=== PATIENT | female | born 1930 | race Caucasian/White ===

== ENCOUNTER 2017-04-05 09:00 | Emergency (ER) | payer OTHER, MEDICARE ==
--- NOTE | 2017-04-05 09:21 | ED.PDOC ---
History of Present Illness - General Chief Complaint: Respiratory Problem Stated Complaint: possible aspiration Time Seen by Provider: 04/05/17 09:17 Source: RN notes reviewed, Vital Signs reviewed, EMS notes reviewed, care home records Exam Limitations: other - Dementia - History of Present Illness Initial Comments: Patient sent from care home for possible aspiration. She started choking during breakfast. They attempted suctioning her both orally and nasally. The nasal attempt gave her a nose bleed which has resolved. She continued to have gurgling sounds and her O2 saturation dropped to 92% on 2L NC. EMS was called and she was transferred here for evaluation. 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, suctioning, sitting upright Worsening Factors: nothing Associated Symptoms: wheezing Allergies/Adverse Reactions: Allergies Sulfa Drugs Allergy (Unverified 12/04/13 21:54) Home Medications: Ambulatory Orders Carvedilol 6.25 mg PO BID 12/05/13 Docusate Sodium [Colace] 100 mg PO BEDTIME 12/05/13 Enalapril Maleate 10 mg PO AM 12/05/13 Folic Acid 400 mcg PO AM 12/05/13 LORazepam [Ativan] 0.5 mg PO BEDTIME 12/05/13 Temazepam 30 mg PO HS 12/05/13 Polyethylene Glycol 3350 [Miralax] 1 unt PO QD #0 pckt 12/06/13 Acetamin W/Cod #3 Tab [Tylenol w/CODEINE #3] 1 ea PO Q6HR PRN 04/05/17 Acetaminophen [Tylenol] 650 mg PO Q6HR PRN 04/05/17 Albuterol Sulfate Nebs [Proventil Nebs] 2.5 mg INH Q4HR PRN 04/05/17 Diazepam 10 mg PO BEDTIME 04/05/17 LORazepam [Ativan] 0.5 mg PO Q4HR PRN 04/05/17 Quetiapine Fumarate [Seroquel] 25 mg PO BID 04/05/17 Review of Systems - Review of Systems Unable to Obtain Due To: dementia Past Medical History (General) - Patient Medical History Hx Cardiac Disorders: No Hx Congestive Heart Failure: No Hx Diabetes: No Hx MRSA: No - Social History Hx Alcohol Use: No Hx Substance Use: No Hx Physical Abuse: No Hx Emotional Abuse: No Family Medical History - Family History Daughter Hx Family Cancer: Yes Physical Exam - Physical Exam General Appearance: Alert, Comfortable, No apparent distress, Well Developed, Well Groomed, Well Hydrated, Well Nourished ENT Exam: normal ENT inspection, hearing grossly normal Neck: non-tender, full range of motion Respiratory: lungs clear, no respiratory distress, no accessory muscle use, decreased breath sounds - shallow breaths, can't follow directions to breath deeply, other - O2 Sat 94-96% on room air Cardiovascular/Chest: normal peripheral pulses, regular rate, rhythm, no edema, no gallop, no murmur Extremity: non-tender, normal inspection, no pedal edema Neurologic: alert, disoriented x 3 Skin Exam: normal color, warm/dry Progress - Progress Progress: 04/05/17 10:04 Patient has been resting comfortably. No respiratory distress. Will d/c - EKG/XRAY/CT XRAY: Neck: no foreign body in esophagus per Radiologist - New cardiomegaly, clear lungs per Radiologist Departure - Departure Clinical Impression: Choked on food Time of Disposition: 10:04 Disposition: Discharge to SNF Condition: Good Departure Forms: ED Discharge - Pt. Copy, Patient Portal Self Enrollment Instructions: DI for Choking Episode Diet: resume usual diet Activity: increase activity as tolerated Referrals: Alfonso Hanson MD [Primary Care Provider] - 1-2 Weeks Home Medications: Ambulatory Orders Carvedilol 6.25 mg PO BID 12/05/13 Docusate Sodium [Colace] 100 mg PO BEDTIME 12/05/13 Enalapril Maleate 10 mg PO AM 12/05/13 Folic Acid 400 mcg PO AM 12/05/13 LORazepam [Ativan] 0.5 mg PO BEDTIME 12/05/13 Temazepam 30 mg PO HS 12/05/13 Polyethylene Glycol 3350 [Miralax] 1 unt PO QD #0 pckt 12/06/13 Acetamin W/Cod #3 Tab [Tylenol w/CODEINE #3] 1 ea PO Q6HR PRN 04/05/17 Acetaminophen [Tylenol] 650 mg PO Q6HR PRN 04/05/17 Albuterol Sulfate Nebs [Proventil Nebs] 2.5 mg INH Q4HR PRN 04/05/17 Diazepam 10 mg PO BEDTIME 04/05/17 LORazepam [Ativan] 0.5 mg PO Q4HR PRN 04/05/17 Quetiapine Fumarate [Seroquel] 25 mg PO BID 04/05/17
[2017-04-05 09:24] VITALS: TEMP 97.8
--- NOTE | 2017-04-05 09:41 | RAD ---
EXAM DESCRIPTION: Chest,1 View CLINICAL HISTORY: 86 years Female, possible aspiration IMPRESSION: When compared to the previous study from February 2012 there is been interval development of cardiomegaly. The lungs are clear without evidence of volume overload. Electronically signed by: Scout Forte MD 04/05/2017 9:40 AM CDT
--- NOTE | 2017-04-05 10:00 | RAD ---
EXAM DESCRIPTION: Neck,Soft Tissue CLINICAL HISTORY: 86 years Female, possible aspiration IMPRESSION: Degenerative changes cervical spine. No large bulky osteophytes which would impede swallowing mechanism. The prevertebral soft tissues appear unremarkable. Lung apices are unremarkable. The epiglottis is sharp. Electronically signed by: Scout Forte MD 04/05/2017 9:59 AM CDT
[2017-04-05 11:45] VITALS: BP 121/41; O2SAT 95
== END 2017-04-05 11:35 ==
LOC: ER 09:00
DX: T17.908A Unspecified foreign body in respiratory tract, part unspecified causing other injury, initial encounter (principal); I51.7 Cardiomegaly; Z88.2 Allergy status to sulfonamides; Z79.899 Other long term (current) drug therapy; X58.XXXA Exposure to other specified factors, initial encounter; Y92.129 Unspecified place in nursing home as the place of occurrence of the external cause